=== PATIENT | male | born 1990 | race Asian ===

== ENCOUNTER 2018-02-11 07:58 | Emergency (ER) | payer OTHER ==
[2018-02-11 08:13] VITALS: BP 159/95
--- NOTE | 2018-02-11 09:44 | ED Physician Documentation ---
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 He is right hand dominant. His vaccinations are up-to-date. He has taken his second hepatitis B vaccination, and is awaiting the appropriate time for the third. 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 The blood of that source patient is available to be tested. Review of Systems Constitutional: denies: Fever Respiratory: denies: Dyspnea GI: denies: Nausea, Vomiting Immunocompromised: denies: Immunocompromised, HIV/AIDS PD PAST MEDICAL HISTORY - Past Medical History Cardiovascular: None Respiratory: Asthma Neuro: None Endocrine/Autoimmune: None GI: None : None HEENT: None Psych: None Musculoskeletal: None Derm: None - Past Surgical History Past Surgical History: No - Present Medications Home Medications: Ambulatory Orders Medication Instructions Recorded Confirmed No Known Home Medications [No 02/11/18 02/11/18 Known Home Medications] - Allergies Allergies/Adverse Reactions: Allergies Allergy/AdvReac Type Severity Reaction Status Date / Time No Known Drug Allergies Allergy Verified 02/11/18 08:15 - Social History Does the pt smoke?: No Smoking Status: Never smoker Does the pt drink ETOH?: Yes Does the pt have substance abuse?: No - Immunizations Immunizations are current?: Yes - POLST Patient has POLST: No PD ED PE NORMAL - Vitals Vital signs reviewed: Yes (initially hypertensive.) - General General: Alert and oriented X 3, Well developed/nourished - HEENT HEENT: Atraumatic - Cardiac Cardiac: RRR - Respiratory Respiratory: No respiratory distress - Derm Derm: No rash - Extremities Extremities: Other (A puncture site is noted on the radial aspect of the hand, at the base of the left thumb. Distal neurovascular is intact.) - Neuro Neuro: Alert and oriented X 3, No motor deficit, No sensory deficit Results - Vitals Vitals: Oxygen O2 Source Room air - Labs Labs: Laboratory Tests 02/11/18 02/11/18 02/11/18 09:05 09:05 23:07 Total Bilirubin 0.7 Direct Bilirubin 0.1 AST 23 ALT 16 Alkaline Phosphatase 57 Total Protein 7.4 Albumin 4.3 Globulin 3.1 Hep Bs Antigen NON-REACTIVE Hepatitis C Antibody HIV 1&2 Ag/Ab, 4th Gen TNP 02/11/18 23:07 Total Bilirubin Direct Bilirubin AST ALT Alkaline Phosphatase Total Protein Albumin Globulin Hep Bs Antigen Hepatitis C Antibody TNP HIV 1&2 Ag/Ab, 4th Gen PD MEDICAL DECISION MAKING - ED course Complexity details: considered differential, d/w patient ED course: 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 The source patient is low risk for HIV or hepatitis. I discussed with the patient risks and benefits of prophylactic antiviral medication. I believe the risk is quite low, and the patient agrees that prophylactic treatment is not necessarily beneficial in this instance. His blood was drawn for HIV and hepatitis screening. He will follow up with his clinic in [place] for further testing and counseling. - Sepsis Event Vital Signs: Oxygen O2 Source Room air Departure - Departure Disposition: 01 Home, Self Care Clinical Impression: Needlestick injury accident with exposure to body fluid Condition: Stable Instructions: ED Body Fluid Exp HC Worker Comments: Follow-up with primary physician, or with the [facility] for repeat HIV testing in 4-6 weeks. Return to the emergency department if you develop any sign of infection, or otherwise worsening symptoms. Discharge Date/Time: 02/11/18 09:56
[2018-02-11 10:03] LABS: ALBUMIN 4.3 g/dL (3.2-5.5); BILIRUBIN,DIRECT 0.1 mg/dL (0.1-0.5); BILIRUBIN,TOTAL 0.7 mg/dL (0.2-1.0); TOTAL PROTEIN 7.4 g/dL (6.7-8.2)
[2018-02-12 13:33] LABS: HEPATITIS B SURFACE ANTIGEN NON-REACTIVE (NON-REACTIVE)
--- NOTE | 2018-02-12 16:32 | ED Physician Documentation ---
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 They redrew him as an outpatient and needed orders for the hepatitis C and HIV tests which were ordered by me. I did not personally see or examine the patient.
== END 2018-02-11 09:56 | disposition home or self-care (01) ==
LOC: ED 07:58
DX: S61.432A Puncture wound without foreign body of left hand, initial encounter (principal); W46.1XXA Contact with contaminated hypodermic needle, initial encounter; Y92.238 Other place in hospital as the place of occurrence of the external cause; Y99.0 Civilian activity done for income or pay; J45.909 Unspecified asthma, uncomplicated
CPT/HCPCS: 1040M; 36415; 80076; 86803; 87340; 87389; 99282; 99283